=== PATIENT | female | born 1980 | race Hispanic/Latino ===

== ENCOUNTER 2018-02-12 03:15 | Emergency (ER) | payer SELFPAY ==
[2018-02-12] MEDS ORDERED: DIPHENHYDRAMINE 50 MG/ML VIAL ONE (03:59)
[2018-02-12] MEDS ORDERED: DIPHENHYDRAMINE 25 MG TAB/CAP ONE (03:59)
[2018-02-12] MEDS ORDERED: predniSONE 20 MG TAB ONE (04:00)
[2018-02-12] MEDS ORDERED: FAMOTIDINE 20 MG/2 ML VIAL IV ONE (04:00)
[2018-02-12] MEDS ORDERED: NA CHLORIDE 0.9% 1,000 ML ONE (04:00)
[2018-02-12] MEDS ORDERED: INSULIN -REGULAR HUMAN 50 UNIT/0.5 ML ML ONE (04:03)
[2018-02-12 04:09] LABS: MPV 8.2 fL (7.6-11.3)
[2018-02-12 04:12] LABS: Absolute Lymphocytes (CBC) 1.5 K/uL (0.7-4.9); Absolute Monocytes 0.3 K/uL (0.1-1.3); Absolute Neutrophil 3.1 K/uL (1.8-8.0); Basophils % 0.3 % (0-1.3); Eosinophils % 1.4 % (0-4.4); Hematocrit 37.7 % (36.0-45.0); Lymphocytes % 29.5 % (15.3-44.8); MCH 32.7 pg (27.0-35.0); MCV 94.7 fL (80-100); Monocytes % 5.7 % (3.3-12.3); RBC Red Blood Cell Count 3.99 M/uL (3.86-4.86)
[2018-02-12 04:19] LABS: Urine Blood 3+ (NEG); Urine Glucose 2+ (NEG); Urine Protein NEGATIVE (NEG)
[2018-02-12 04:20] LABS: Albumin 3.6 g/dL (3.4-5.0); Bilirubin Total 0.3 mg/dL (0.2-1.0); Potassium 3.9 mmol/L (3.5-5.1); Protein, Total 6.9 g/dL (6.4-8.2)
--- NOTE | 2018-02-12 05:11 | ER ---
Nurse's Notes [facility] Name: Cary Whyte Age: 37 yrs Sex: Female : 1980 Arrival Date: 02/12/2018 Time: 03:21 Bed 13 Private MD: Diagnosis: Type 1 diabetes mellitus;Urticaria;Dermatitis, unspecified;Rash and other nonspecific skin eruption Presentation: 02/12 03:35 Presenting complaint: Patient states: I have a rash that started yesterday and has jb4 spread to my face chest arms, and legs. I went over to my sisters and had dinner with her and took a shower but I used a new soap I had never used before. Transition of care: patient was not received from another setting of care. Onset of symptoms was February 10, 2018. Risk Assessment: Do you want to hurt yourself or someone else? Patient reports no desire to harm self or others. Initial Sepsis Screen: Does the patient meet any 2 criteria? No. Patient's initial sepsis screen is negative. Does the patient have a suspected source of infection? No. Patient's initial sepsis screen is negative. Care prior to arrival: None. 03:35 Method Of Arrival: Ambulatory jb4 03:35 Acuity: SCAR 3 jb4 Triage Assessment: 03:35 General: Appears in no apparent distress. comfortable, Behavior is calm, cooperative, jb4 appropriate for age. Pain: Denies pain. EENT: Throat is clear. Neuro: Level of Consciousness is awake, alert, obeys commands, Oriented to person, place, time, situation. Cardiovascular: Heart tones S1 S2 present Patient's skin is warm and dry. Respiratory: Airway is patent Respiratory effort is even, unlabored, Respiratory pattern is regular, symmetrical, Breath sounds are clear bilaterally. GI: No signs and/or symptoms were reported involving the gastrointestinal system. : No signs and/or symptoms were reported regarding the genitourinary system. Derm: Skin is intact, Skin is pink, warm \T\ dry. Rash noted that is itchy, red, urticaria. Musculoskeletal: Circulation, motion, and sensation intact. Historical: - Allergies: 04:04 No Known Allergies; jb4 - Home Meds: 03:35 metformin 500 mg Oral tab 2 tabs 2 times per day [Active]; lisinopril 2.5 mg Oral tab 1 jb4 tab once daily [Active]; lovastatin 20 mg Oral tab 1 tab once daily [Active]; Levemir subcutaneous subcutaneous [Active]; Novolin N Sub-Q [Active]; - PMHx: 03:35 Diabetes - NIDDM; Hyperlipidemia; Hypertension; jb4 - PSHx: 03:35 ; jb4 - Immunization history:: Adult Immunizations up to date, Flu vaccine is not up to date. - Social history:: Smoking status: unknown. - Family history:: not pertinent. - Ebola Screening: : No symptoms or risks identified at this time. Screenin:13 Abuse screen: Denies threats or abuse. Nutritional screening: No deficits noted. jb4 Tuberculosis screening: No symptoms or risk factors identified. Fall Risk None identified. Assessment: 04:13 General: see triage assessment.. jb4 04:31 Reassessment: Patient appears in no apparent distress at this time. Patient and/or jb4 family updated on plan of care and expected duration. Pain level reassessed. Patient is alert, oriented x 3, equal unlabored respirations, skin warm/dry/pink. Patient states feeling better. 05:00 Reassessment: Patient appears in no apparent distress at this time. Patient and/or jb4 family updated on plan of care and expected duration. Pain level reassessed. Patient is alert, oriented x 3, equal unlabored respirations, skin warm/dry/pink. Reports being able to breath better and a decrease in chest pressure. Patient states feeling better. Vital Signs: 03:35 BP 124 / 85; Pulse 85; Resp 20; Temp 99.0(O); Pulse Ox 100% on R/A; Weight 58.97 kg jb4 (R); Height 5 ft. 3 in. (160.02 cm); 04:33 BP 118 / 82; Pulse 77; Resp 18; Pulse Ox 100% on R/A; jb4 03:35 Body Mass Index 23.03 (58.97 kg, 160.02 cm) 4 ED Course: 03:21 Patient arrived in ED. es 03:27 Riki Chen MD is Attending Physician. [facility] 03:35 Arm band placed on right wrist. jb4 03:35 Patient has correct armband on for positive identification. Bed in low position. Call [facility] light in reach. Side rails up X 1. Pulse ox on. NIBP on. 03:35 Initial lab(s) drawn, by id, sent to lab. Inserted saline lock: 22 gauge in right jb4 antecubital area, using aseptic technique. Blood collected. 03:40 Misael Galarza, JL is Primary Nurse. jb4 04:07 Triage completed. jb4 05:27 No provider procedures requiring assistance completed. IV discontinued, intact, ao bleeding controlled, No redness/swelling at site. Pressure dressing applied. Administered Medications: 03:41 CANCELLED (Duplicate Order): Pepcid 40 mg PO once diego 03:42 Not Given (Duplicate Order): Benadryl 50 mg PO once diego 04:01 Drug: Insulin Regular Human 10 units {Co-Signature: ak1 (Deborah Carbajal RN).} Route: jb4 Sub-Q; Site: left upper arm; 05:28 Follow up: Response: No adverse reaction; Blood sugar is lowered jb4 04:02 Drug: Insulin Regular Human 10 units {Co-Signature: ak1 (Deborah Carbajal RN).} Route: IVP; jb4 Site: right antecubital; 05:28 Follow up: Response: No adverse reaction; Blood sugar is lowered jb4 04:17 Drug: Pepcid 40 mg Route: IVP; Site: right antecubital; jb4 04:40 Follow up: Response: No adverse reaction jb4 04:17 Drug: Benadryl 25 mg Route: IVP; Site: right antecubital; jb4 04:40 Follow up: Response: No adverse reaction jb4 04:18 Drug: NS 0.9% 1000 ml Route: IV; Rate: 1 bolus; Site: right antecubital; jb4 05:28 Follow up: Response: No adverse reaction; IV Status: Completed infusion jb4 04:18 Drug: Benadryl 25 mg Route: PO; jb4 04:40 Follow up: Response: No adverse reaction jb4 04:20 Drug: predniSONE 40 mg Route: PO; jb4 04:50 Follow up: Response: No adverse reaction jb4 Point of Care Testing: Blood Glucose: 03:35 Blood Glucose: 453 mg/dL; jb4 04:31 Blood Glucose: 286 mg/dL; jb4 Ranges: Outcome: 05:11 Discharge ordered by MD. cortez 05:27 Discharged to home ambulatory. ao 05:27 Condition: stable 05:27 Discharge instructions given to patient, Instructed on discharge instructions, follow up and referral plans. Demonstrated understanding of instructions, follow-up care, medications, Prescriptions given X 3. 05:28 Patient left the ED. ao Signatures: Riki Chen MD MD cha Salyer, Edna es Ortiz, Alex RN RN Misael Vasquez RN RN jb4 Deborah Carbajal RN ak1 Corrections: (The following items were deleted from the chart) 04:33 03:35 Cardiovascular: Patient's skin is warm and dry. jb4 jb4 04:33 03:35 Respiratory: Airway is patent Respiratory effort is even, unlabored, Respiratory jb4 pattern is regular, symmetrical, jb4
--- NOTE | 2018-02-12 05:12 | EDPHYS ---
Physician Documentation [facility] Name: Cary Whyte Age: 37 yrs Sex: Female : 1980 Arrival Date: 02/12/2018 Time: 03:21 Bed 13 Private MD: ED Physician Riki Chen HPI: 02/12 03:37 This 37 yrs old Female presents to ER via Unassigned with complaints of Rash. diego 03:37 The patient's rash thought to be caused by soap. The rash is located on the body diego diffusely. The rash can be described as macular, papular, urticarial. Onset: The symptoms/episode began/occurred 2 day(s) ago. Associated signs and symptoms: Pertinent positives:. Severity of symptoms: At their worst the symptoms were mild in the emergency department the symptoms are unchanged. Treatment given at home: Benadryl, OTC lotion/cream. The patient has not experienced similar symptoms in the past. Historical: - Allergies: 04:04 No Known Allergies; jb4 - Home Meds: 03:35 metformin 500 mg Oral tab 2 tabs 2 times per day [Active]; lisinopril 2.5 mg Oral tab 1 jb4 tab once daily [Active]; lovastatin 20 mg Oral tab 1 tab once daily [Active]; Levemir subcutaneous subcutaneous [Active]; Novolin N Sub-Q [Active]; - PMHx: 03:35 Diabetes - NIDDM; Hyperlipidemia; Hypertension; jb4 - PSHx: 03:35 ; jb4 - Immunization history:: Adult Immunizations up to date, Flu vaccine is not up to date. - Social history:: Smoking status: unknown. - Family history:: not pertinent. - Ebola Screening: : No symptoms or risks identified at this time. ROS: 03:42 Constitutional: Negative for fever, chills, and weight loss, Eyes: Negative for injury, diego pain, redness, and discharge, ENT: Negative for injury, pain, and discharge, Neck: Negative for injury, pain, and swelling, Cardiovascular: Negative for chest pain, palpitations, and edema, Respiratory: Negative for shortness of breath, cough, wheezing, and pleuritic chest pain, Abdomen/GI: Negative for abdominal pain, nausea, vomiting, diarrhea, and constipation, Back: Negative for injury and pain, : Negative for injury, bleeding, discharge, and swelling, MS/Extremity: Negative for injury and deformity, Neuro: Negative for headache, weakness, numbness, tingling, and seizure, Psych: Negative for depression, anxiety, suicide ideation, homicidal ideation, and hallucinations, Allergy/Immunology: Negative for hives, rash, and allergies, Endocrine: Negative for neck swelling, polydipsia, polyuria, polyphagia, and marked weight changes. 03:42 Skin: Positive for rash. 03:42 Neuro: 03:42 Respiratory: Negative for shortness of breath. diego 03:42 Neuro: Negative for altered mental status, dizziness. Exam: 03:42 Constitutional: This is a well developed, well nourished patient who is awake, alert, digeo and in no acute distress. Head/Face: Normocephalic, atraumatic. Eyes: Pupils equal round and reactive to light, extra-ocular motions intact. Lids and lashes normal. Conjunctiva and sclera are non-icteric and not injected. Cornea within normal limits. Periorbital areas with no swelling, redness, or edema. ENT: Nares patent. No nasal discharge, no septal abnormalities noted. Tympanic membranes are normal and external auditory canals are clear. Oropharynx with no redness, swelling, or masses, exudates, or evidence of obstruction, uvula midline. Mucous membranes moist. Neck: Trachea midline, no thyromegaly or masses palpated, and no cervical lymphadenopathy. Supple, full range of motion without nuchal rigidity, or vertebral point tenderness. No Meningismus. Chest/axilla: Normal chest wall appearance and motion. Nontender with no deformity. No lesions are appreciated. Cardiovascular: Regular rate and rhythm with a normal S1 and S2. No gallops, murmurs, or rubs. Normal PMI, no JVD. No pulse deficits. Respiratory: Lungs have equal breath sounds bilaterally, clear to auscultation and percussion. No rales, rhonchi or wheezes noted. No increased work of breathing, no retractions or nasal flaring. Abdomen/GI: Soft, non-tender, with normal bowel sounds. No distension or tympany. No guarding or rebound. No evidence of tenderness throughout. Back: No spinal tenderness. No costovertebral tenderness. Full range of motion. MS/ Extremity: Pulses equal, no cyanosis. Neurovascular intact. Full, normal range of motion. Neuro: Awake and alert, GCS 15, oriented to person, place, time, and situation. Cranial nerves II-XII grossly intact. Motor strength 5/5 in all extremities. Sensory grossly intact. Cerebellar exam normal. Normal gait. Psych: Awake, alert, with orientation to person, place and time. Behavior, mood, and affect are within normal limits. 03:42 Skin: cellulitis, is not appreciated, induration, is not appreciated, injury, is not appreciated, urticaria, Turgor: is good. Vital Signs: 03:35 BP 124 / 85; Pulse 85; Resp 20; Temp 99.0(O); Pulse Ox 100% on R/A; Weight 58.97 kg jb4 (R); Height 5 ft. 3 in. (160.02 cm); 04:33 BP 118 / 82; Pulse 77; Resp 18; Pulse Ox 100% on R/A; jb4 03:35 Body Mass Index 23.03 (58.97 kg, 160.02 cm) jb4 MDM: 03:27 Patient medically screened. [facility] 03:44 Data reviewed: vital signs, nurses notes, lab test result(s), CBC, electrolytes, diego urinalysis. 02/12 03:41 Order name: CBC with Diff; Complete Time: 04:21 [facility] 02/12 03:41 Order name: Comprehensive Metabolic Panel; Complete Time: 04:21 [facility] 02/12 04:11 Order name: Urine Dipstick--Ancillary (enter results); Complete Time: 04:21 nc 02/12 03:37 Order name: Blood Glucose Level; Complete Time: 03:40 [facility] 02/12 03:41 Order name: Urine Dipstick-Ancillary (obtain specimen); Complete Time: 04:16 [facility] 02/12 03:41 Order name: Urine Test (obtain specimen); Complete Time: 04:16 [facility] 02/12 04:21 Order name: Blood Glucose Level; Complete Time: 04:33 [facility] Administered Medications: 03:41 CANCELLED (Duplicate Order): Pepcid 40 mg PO once [facility] 03:42 Not Given (Duplicate Order): Benadryl 50 mg PO once [facility] 04:01 Drug: Insulin Regular Human 10 units {Co-Signature: ak1 (Deborah Carbajal RN).} Route: jb4 Sub-Q; Site: left upper arm; 05:28 Follow up: Response: No adverse reaction; Blood sugar is lowered jb4 04:02 Drug: Insulin Regular Human 10 units {Co-Signature: ak1 (Deborah Carbajal RN).} Route: IVP; jb4 Site: right antecubital; 05:28 Follow up: Response: No adverse reaction; Blood sugar is lowered jb4 04:17 Drug: Pepcid 40 mg Route: IVP; Site: right antecubital; jb4 04:40 Follow up: Response: No adverse reaction jb4 04:17 Drug: Benadryl 25 mg Route: IVP; Site: right antecubital; jb4 04:40 Follow up: Response: No adverse reaction jb4 04:18 Drug: NS 0.9% 1000 ml Route: IV; Rate: 1 bolus; Site: right antecubital; jb4 05:28 Follow up: Response: No adverse reaction; IV Status: Completed infusion jb4 04:18 Drug: Benadryl 25 mg Route: PO; jb4 04:40 Follow up: Response: No adverse reaction jb4 04:20 Drug: predniSONE 40 mg Route: PO; jb4 04:50 Follow up: Response: No adverse reaction jb4 Point of Care Testing: Blood Glucose: 03:35 Blood Glucose: 453 mg/dL; jb4 04:31 Blood Glucose: 286 mg/dL; jb4 Ranges: Critical Glucose Levels:Adult <50 mg/dl or >400 mg/dl <40 mg/dl or >180 mg/dl Disposition: 02/12/18 05:11 Discharged to Home. Impression: Type 1 diabetes mellitus, Urticaria, Dermatitis, unspecified, Rash and other nonspecific skin eruption. - Condition is Stable. - Discharge Instructions: Hives, Hives, [id number], Type 1 Diabetes Mellitus, Self Care, Adult, Type 1 Diabetes Mellitus, Diagnosis, Adult, Wbef-nw-Leyu, Type 1 Diabetes Mellitus, Self Care, Adult, [id number]. - Prescriptions for Benadryl 25 mg Oral Capsule - take 1 capsule by ORAL route every 6 hours As needed; 30 tablet. Pepcid 20 mg Oral Tablet - take 1 tablet by ORAL route every 12 hours for 10 days; 20 tablet. Prednisone 20 mg Oral Tablet - take 2 tablet by ORAL route once daily for 5 days; 10 tablet. - Medication Reconciliation Form, Thank You Letter, Antibiotic Education, Prescription Opioid Use form. - Follow up: Private Physician; When: 2 - 3 days; Reason: Recheck today's complaints, Continuance of care, Re-evaluation by your physician. - Problem is new. - Symptoms have improved. Signatures: Dispatcher [employer] EDID Riki Chen MD MD cha Ortiz, Alex RN RN Misael Vasquez RN RN jb4 Deborah Carbajal RN ak1 Corrections: (The following items were deleted from the chart) 03:41 03:37 Pepcid 40 mg PO once ordered. diego cortez 05:28 05:11 02/12/2018 05:11 Discharged to Home. Impression: Type 1 diabetes mellitus; ao Urticaria; Dermatitis, unspecified; Rash and other nonspecific skin eruption. Condition is Stable. Discharge Instructions: Hives, Hives, Mvuz-od-Eahh, Type 1 Diabetes Mellitus, Self Care, Adult, Type 1 Diabetes Mellitus, Diagnosis, Adult, Sypv-id-Hmex, Type 1 Diabetes Mellitus, Self Care, Adult, Ggpl-bm-Hpkh. Prescriptions for Benadryl 25 mg Oral Capsule - take 1 capsule by ORAL route every 6 hours As needed; 30 tablet, Pepcid 20 mg Oral Tablet - take 1 tablet by ORAL route every 12 hours for 10 days; 20 tablet, Prednisone 20 mg Oral Tablet - take 2 tablet by ORAL route once daily for 5 days; 10 tablet. and Forms are Medication Reconciliation Form, Thank You Letter, Antibiotic Education, Prescription Opioid Use. Follow up: Private Physician; When: 2 - 3 days; Reason: Recheck today's complaints, Continuance of care, Re-evaluation by your physician. Problem is new. Symptoms have improved. diego
[2018-02-12 05:36] VITALS: TEMP 99; O2SAT 100
[2018-02-12 05:37] VITALS: BP 118/82
== END 2018-02-12 05:28 | disposition home or self-care (01) ==
LOC: ER 03:15
DX: L50.9 Urticaria, unspecified (principal); L30.9 Dermatitis, unspecified; E10.65 Type 1 diabetes mellitus with hyperglycemia; I10 Essential (primary) hypertension; E78.5 Hyperlipidemia, unspecified; Z79.4 Long term (current) use of insulin; Z79.899 Other long term (current) drug therapy
CPT/HCPCS: 36415; 80053; 81003; 82962; 85025; 96361; 96372; 96374; 96375; 99284; J7030; J7512

== ENCOUNTER 2019-04-01 23:57 | Emergency (ER) | payer SELFPAY ==
[2019-04-02] MEDS ORDERED: MAGNE/ALUM HYDROXD 30 ML UCUP ONE (01:14)
[2019-04-02] MEDS ORDERED: LIDOCAINE VISCOUS 2% SOLN 15 ML UDC ONE (01:15)
[2019-04-02] MEDS ORDERED: NA CHLORIDE 0.9% 1,000 ML ONE (01:15)
[2019-04-02] MEDS ORDERED: ONDANSETRON 4 MG (ODT) TAB ONE (01:15)
[2019-04-02] MEDS ORDERED: FAMOTIDINE 20 MG/2 ML VIAL IV ONE (01:15)
[2019-04-02 01:25] LABS: Protime INR 0.93
[2019-04-02 01:27] LABS: Absolute Lymphocytes (CBC) 0.8 K/uL (0.7-4.9); Basophils % 0.2 % (0-1.3); Hematocrit 40.1 % (36.0-45.0); Lymphocytes % 9.8 % (15.3-44.8); MPV 9.1 fL (7.6-11.3); RBC Red Blood Cell Count 4.24 M/uL (3.86-4.86)
[2019-04-02 01:54] LABS: ALT/SGPT 19 U/L (12-78); AST/SGOT 15 U/L (15-37); Alkaline Phosphatase 105 U/L (45-117); BUN Blood Urea Nitrogen 13 mg/dL (7-18); Bicarbonate 24 mmol/L (21-32); Bilirubin Direct 0.1 mg/dL (0-0.2); Bilirubin Total 0.6 mg/dL (0.2-1.0); Glucose Level 304 mg/dL (74-106); Lipase 48 U/L (73-393); Magnesium 1.9 mg/dL (1.8-2.4); NT PRO-BNP 55 pg/mL (<125); Protein, Total 7.5 g/dL (6.4-8.2); Sodium Level 136 mmol/L (136-145); Troponin (Emerg Dept Use Only) < 0.02 ng/mL (0.0-0.045)
[2019-04-02 02:22] LABS: Urine Blood 2+ (NEG); Urine Glucose 2+ (NEG); Urine Protein NEGATIVE (NEG); Urine pH 6.5 (5.0-7.0)
[2019-04-02 03:06] LABS: Blood Morphology Comment NOT SEEN (NOT SEEN); Platelet Estimate ADEQ
--- NOTE | 2019-04-02 04:53 | ER ---
Nurse's Notes [facility] Name: Cary Whyte Age: 38 yrs Sex: Female : 1980 Arrival Date: 04/01/2019 Time: 23:58 Bed 17 Private MD: Diagnosis: Hyperglycemia, unspecified;Generalized abdominal pain Presentation: 04/02 00:20 Presenting complaint: Patient states: upper abd pain started today, also vomiting, iw started having left sided chest pain at 9 pm. Transition of care: patient was not received from another setting of care. Onset of symptoms was April 02, 2019. Risk Assessment: Do you want to hurt yourself or someone else? Patient reports no desire to harm self or others. Initial Sepsis Screen: Does the patient meet any 2 criteria? No. Patient's initial sepsis screen is negative. Does the patient have a suspected source of infection? No. Patient's initial sepsis screen is negative. Care prior to arrival: None. 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 - Social history:: Smoking status: Patient uses tobacco products, 3 cigs . - Ebola Screening: : Patient negative for fever greater than or equal to 101.5 degrees Fahrenheit, and additional compatible Ebola Virus Disease symptoms Patient denies exposure to infectious person Patient denies travel to an Ebola-affected area in the 21 days before illness onset No symptoms or risks identified at this time. Screenin:30 Abuse screen: Denies threats or abuse. Denies injuries from another. Nutritional iw screening: No deficits noted. Tuberculosis screening: No symptoms or risk factors identified. Fall Risk IV access (20 points). Assessment: 01:30 General: Appears in no apparent distress. Behavior is calm, cooperative. Pain: iw Complains of pain in anterior aspect of left upper chest, left breast and abdomen. Neuro: Level of Consciousness is awake, alert, obeys commands, Oriented to person, place, time, situation, Moves all extremities. Full function. Cardiovascular: Reports chest pain. Respiratory: Respiratory effort is even, unlabored, Respiratory pattern is regular, symmetrical. GI: Bowel sounds present X 4 quads. Abd is soft and non tender X 4 quads. Reports upper abdominal pain, epigastric pain. Derm: Skin is intact, is healthy with good turgor. Musculoskeletal: Range of motion: intact in all extremities. 02:30 Reassessment: Patient appears in no apparent distress at this time. Patient and/or iw family updated on plan of care and expected duration. Pain level reassessed. Patient is alert, oriented x 3, equal unlabored respirations, skin warm/dry/pink. 04:32 Reassessment: Patient appears in no apparent distress at this time. Patient and/or iw family updated on plan of care and expected duration. Pain level reassessed. Patient is alert, oriented x 3, equal unlabored respirations, skin warm/dry/pink. 04:35 Reassessment: report received from Felicitas PARIKH. Vital Signs: 00:25 BP 143 / 94; Pulse 75; Resp 16 S; Temp 98.2; Pulse Ox 98% on R/A; Weight 58.06 kg; iw Height 5 ft. 3 in. (160.02 cm); Pain 10/10; 00:41 BP 116 / 83; Pulse 74; Resp 16; Pulse Ox 98% on R/A; Pain 10/10; iw 04:32 BP 124 / 74; Pulse 81; Resp 16; Temp 98.2; Pulse Ox 99% on R/A; iw 04:53 Pulse 77; Resp 17; Pulse Ox 98% on R/A; sg 04:53 BP 117 / 70; sg 00:25 Body Mass Index 22.67 (58.06 kg, 160.02 cm) iw ED Course: 04/01 23:58 Patient arrived in ED. cf2 04/02 00:20 Baljeet, Felicitas, RN is Primary Nurse. iw 00:22 Triage completed. iw 00:26 Arm band placed on. iw 00:28 Inserted saline lock: 20 gauge in right antecubital area, using aseptic technique. jb5 Blood collected. 00:29 Warm blanket given. Head of bed Elevated. jb5 00:32 Riki Sol PA is PHCP. cp 00:32 Cosme Stoner MD is Attending Physician. cp 02:34 XRAY Chest (1 view) In Process Unspecified. EDMS 02:55 CT Abd/Pelvis - IV Contrast Only In Process Unspecified. EDMS 04:00 Patient has correct armband on for positive identification. Bed in low position. Call sg light in reach. Side rails up X2. engineering production worker on. Pulse ox on. NIBP on. Warm blanket given. 04:00 Report received from Felicitas PARIKH. sg 04:33 No provider procedures requiring assistance completed. iw 04:35 Primary Nurse role handed off by Felicitas Delong RN sg 04:35 Manny Washington RN is Primary Nurse. sg 05:00 IV discontinued, intact, bleeding controlled, No redness/swelling at site. Pressure sg dressing applied. Administered Medications: 01:30 Drug: NS 0.9% 1000 ml Route: IV; Rate: 1 bolus; Site: right antecubital; iw 01:30 Drug: Pepcid 20 mg Route: IVP; Site: right antecubital; iw 01:30 Drug: Zofran 4 mg Route: PO; sg 01:38 Drug: GI Cocktail without - (Maalox Suspension 30 ml, Lidocaine Liquid 2 % 15 iw ml) Route: PO; 04:33 Not Given (Other Intervention Used): Zofran 4 mg IVP once; over 2 minutes sg Outcome: 04:51 Discharge ordered by . ps1 05:00 Discharged to home ambulatory, with family. sg 05:00 Condition: good 05:00 Discharge instructions given to patient, family, using [employer] diamond sorter service Instructed on discharge instructions, follow up and referral plans. safety practices, home medication use Demonstrated understanding of instructions, follow-up care. 05:08 Patient left the ED. dm5 Signatures: Dispatcher [employer] [facility] Leyda Rodriguez RN RN dm Manny Washington RN RN sg Baljeet, Felicitas, Riki Obregon RN, PA PA cp Broussard, Jennifer jb5 Cosme Stoner MD MD ps1 Zaid Beaver 2
--- NOTE | 2019-04-02 04:55 | EDPHYS ---
Physician Documentation [facility] Name: Cary Whyte Age: 38 yrs Sex: Female : 1980 Arrival Date: 04/01/2019 Time: 23:58 Bed 17 Private MD: ED Physician Cosme Stoner HPI: 04/02 01:00 This 38 yrs old Female presents to ER via Ambulatory with complaints of cp Abdominal Pain, Chest Pain. 01:00 The patient presents with abdominal pain in the epigastric area, in the upper abdomen. cp Onset: The symptoms/episode began/occurred today, at 17:00. The symptoms radiate to chest. Associated signs and symptoms: Pertinent positives: nausea and vomiting. 01:00 The symptoms are described as waxing/waning. Severity of pain: in the emergency cp department the pain is unchanged despite home interventions. 01:00 Modifying factors: the symptoms are aggravated by pressure. 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 - Social history:: Smoking status: Patient uses tobacco products, 3 cigs . - Ebola Screening: : Patient negative for fever greater than or equal to 101.5 degrees Fahrenheit, and additional compatible Ebola Virus Disease symptoms Patient denies exposure to infectious person Patient denies travel to an Ebola-affected area in the 21 days before illness onset No symptoms or risks identified at this time. ROS: 01:05 Constitutional: Negative for body aches, chills, fever, poor PO intake. cp 01:05 Eyes: Negative for injury, pain, redness, and discharge. cp 01:05 Cardiovascular: Positive for chest pain. cp 01:05 ENT: Negative for drainage from ear(s), ear pain, sore throat, difficulty swallowing, cp difficulty handling secretions. 01:05 Neck: Negative for stiffness. 01:05 Respiratory: Negative for cough, shortness of breath, wheezing. 01:05 Abdomen/GI: Positive for abdominal pain, nausea, vomiting, Negative for diarrhea, constipation, anorexia, active vomiting. 01:05 Back: Negative for pain at rest, pain with movement, radiated pain. 01:05 : Negative for urinary symptoms. 01:05 Skin: Negative for rash. 01:05 Neuro: Negative for altered mental status, dizziness, headache, syncope, weakness. 01:05 All other systems are negative. Exam: 01:10 Constitutional: The patient appears in no acute distress, alert, awake, cp non-diaphoretic, non-toxic, well developed, well nourished. 01:10 Head/Face: Normocephalic, atraumatic. cp 01:10 Eyes: Periorbital structures: appear normal, Conjunctiva: normal, no exudate, no injection, Sclera: no appreciated abnormality, Lids and lashes: appear normal, bilaterally. 01:10 ENT: External ear(s): are unremarkable, Nose: is normal, Mouth: Lips: moist, Oral mucosa: Posterior pharynx: is normal, airway is patent, no erythema, no exudate. 01:10 Chest/axilla: Inspection: normal, Palpation: is normal, no crepitus, no tenderness. 01:10 Cardiovascular: Rate: normal, Rhythm: regular. 01:10 Respiratory: the patient does not display signs of respiratory distress, Respirations: normal, no use of accessory muscles, no retractions, no splinting, no tachypnea, labored breathing, is not present, Breath sounds: are clear throughout, no decreased breath sounds, no stridor, no wheezing. 01:10 Abdomen/GI: Inspection: abdomen appears normal, Bowel sounds: active, all quadrants, Palpation: soft, in all quadrants, moderate abdominal tenderness, in the epigastric area and right upper quadrant, voluntary guarding, is elicited in the epigastric area and right upper quadrant. 01:10 Back: pain, is absent, ROM is normal. 01:10 Neuro: Orientation: to person, place \T\ time. Mentation: is normal, Motor: moves all fours, strength is normal. Vital Signs: 00:25 BP 143 / 94; Pulse 75; Resp 16 S; Temp 98.2; Pulse Ox 98% on R/A; Weight 58.06 kg; iw Height 5 ft. 3 in. (160.02 cm); Pain 10/10; 00:41 BP 116 / 83; Pulse 74; Resp 16; Pulse Ox 98% on R/A; Pain 10/10; iw 04:32 BP 124 / 74; Pulse 81; Resp 16; Temp 98.2; Pulse Ox 99% on R/A; iw 04:53 Pulse 77; Resp 17; Pulse Ox 98% on R/A; sg 04:53 BP 117 / 70; sg 00:25 Body Mass Index 22.67 (58.06 kg, 160.02 cm) iw MDM: 00:34 Patient medically screened. cp 01:15 Differential diagnosis: cholecystitis, Cholelithiasis, gastritis, non-specific abd cp pain, pancreatitis, Peptic Ulcer Disease, Perf. Duodenal Ulcer, Perf. Gastric Ulcer. 03:24 Data reviewed: vital signs, nurses notes, lab test result(s), I have discussed the cp patient's presentation/case with the attending Emergency Department Physician;. Transition of care: After a detail discussion of the patient's case, care is transferred to Cosme Stoner MD. 04/02 00:36 Order name: Basic Metabolic Panel iw 04/02 00:36 Order name: CBC with Diff iw 04/02 00:36 Order name: LFT's iw 04/02 00:36 Order name: Magnesium iw 04/02 00:36 Order name: NT PRO-BNP iw 04/02 00:36 Order name: PT-INR iw 04/02 00:36 Order name: Troponin (emerg Dept Use Only) iw 04/02 00:55 Order name: Lipase cp 04/02 01:39 Order name: CBC with Automated Diff; Complete Time: 03:17 EDMS 04/02 03:17 Interpretation: Normal except: GIULIA% 85.7; LYM% 9.8. cp 04/02 01:41 Order name: Urine Dipstick--Ancillary (enter results); Complete Time: 03:18 cm6 04/02 03:18 Interpretation: Normal except: UGLUC 2+; UKET 4+; UBLD 2+. cp 04/02 01:41 Order name: Urine --Ancillary (enter results) cm6 04/02 01:42 Order name: Protime (+INR); Complete Time: 02:23 EDMS 04/02 01:55 Order name: Basic Metabolic Panel; Complete Time: 02:23 EDMS 04/02 02:23 Interpretation: Normal except: GLUC 304. cp 04/02 01:56 Order name: Liver (Hepatic) Function; Complete Time: 02:23 EDMS 04/02 02:23 Interpretation: Reviewed. cp 04/02 00:29 Order name: EKG - Nurse/Tech; Complete Time: 00:29 jb5 04/02 00:29 Order name: Cardiac monitoring; Complete Time: 00:29 jb5 04/02 00:36 Order name: XRAY Chest (1 view) iw 04/02 00:36 Order name: EKG; Complete Time: 01:31 iw 04/02 00:36 Order name: IV Saline Lock; Complete Time: 00:41 iw 04/02 01:30 Order name: CT Abd/Pelvis - IV Contrast Only cp 04/02 01:56 Order name: Troponin (Emerg Dept Use Only); Complete Time: 02:23 EDMS 04/02 02:23 Interpretation: Within normal limits: TROPED < 0.02. cp 04/02 01:56 Order name: NT PRO-BNP; Complete Time: 02:23 EDMS 04/02 01:56 Order name: Magnesium; Complete Time: 02:23 EDMS 04/02 01:56 Order name: Lipase; Complete Time: 02:23 EDMS 04/02 02:23 Interpretation: LIP 48; Reviewed. cp 04/02 02:19 Order name: Manual Differential; Complete Time: 03:17 EDMS 04/02 03:18 Interpretation: Normal except: SEGS 82; BANDS [F] 2; LYM 12. cp 04/02 00:36 Order name: Labs collected and sent; Complete Time: 01:21 iw 04/02 00:36 Order name: O2 Per Protocol; Complete Time: 00:41 iw 04/02 00:36 Order name: O2 Sat Monitoring; Complete Time: 00:41 iw 04/02 00:55 Order name: Urine Dipstick-Ancillary (obtain specimen); Complete Time: 01:16 cp 04/02 00:55 Order name: Urine Test (obtain specimen); Complete Time: 01:16 cp Administered Medications: 01:30 Drug: NS 0.9% 1000 ml Route: IV; Rate: 1 bolus; Site: right antecubital; iw 01:30 Drug: Pepcid 20 mg Route: IVP; Site: right antecubital; iw 01:30 Drug: Zofran 4 mg Route: PO; sg 01:38 Drug: GI Cocktail without - (Maalox Suspension 30 ml, Lidocaine Liquid 2 % 15 iw ml) Route: PO; 04:33 Not Given (Other Intervention Used): Zofran 4 mg IVP once; over 2 minutes sg Disposition: 07:05 Co-signature as Attending Physician, Cosme Stoner MD Available for consultation at ps1 all times. Signing chart for administrative purposes. Not an endorsement of care. . Disposition: 04/02/19 04:51 Discharged to Home. Impression: Hyperglycemia, unspecified, Generalized abdominal pain. - Condition is Stable. - Discharge Instructions: Abdominal Pain, Adult, Hyperglycemia. - Medication Reconciliation Form, Thank You Letter, Antibiotic Education, Prescription Opioid Use form. - Follow up: Private Physician; When: As needed; Reason: If symptoms return, Further diagnostic work-up, Recheck today's complaints, Continuance of care. Follow up: Emergency Department; When: As needed; Reason: Fever > 102 F, Trouble breathing, Worsening of condition. - Problem is new. - Symptoms have improved. Signatures: Dispatcher [employer] EDLeyda Huber RN RN dm5 Manny Washington RN RN sg Williams, Irene, RN RN Riki Sol PA PA cp Broussard, Jennifer 5 Cosme Stoner MD MD ps1 Corrections: (The following items were deleted from the chart) 05:08 04:51 04/02/2019 04:51 Discharged to Home. Impression: Hyperglycemia, unspecified; dm5 Generalized abdominal pain. Condition is Stable. Forms are Medication Reconciliation Form, Thank You Letter, Antibiotic Education, Prescription Opioid Use. Follow up: Private Physician; When: As needed; Reason: If symptoms return, Further diagnostic work-up, Recheck today's complaints, Continuance of care. Follow up: Emergency Department; When: As needed; Reason: Fever > 102 F, Trouble breathing, Worsening of condition. Problem is new. Symptoms have improved. ps1
[2019-04-02 05:16] VITALS: TEMP 98.2
[2019-04-02 05:21] VITALS: BP 117/70; O2SAT 98
--- NOTE | 2019-04-02 11:56 | RAD REPORT ---
EXAM DESCRIPTION: RAD - Chest Single View - 04/02/2019 2:12 am CLINICAL HISTORY: CHEST PAIN Chest pain. COMPARISON: No comparisons FINDINGS: Portable technique limits examination quality. The lungs are grossly clear. The heart is normal in size. No displaced fractures. IMPRESSION: No acute intrathoracic process suspected.
--- NOTE | 2019-04-02 12:47 | EKG ---
Test Date: 2019-04-02 Test Time: 00:18:22 [employer] Residential Service Technician: NITISH MEASUREMENT RESULTS: Intervals: Rate: 77 [place]: 142 QRSD: 76 QT: 414 QTc: 468 [place]: P: 51 OH: 142 QRS: 9 T: 48 INTERPRETIVE STATEMENTS: Normal sinus rhythm Cannot rule out Anterior infarct, age undetermined Abnormal ECG No previous ECG available for comparison Electronically Signed On 04-02-19 12:46:12 SMASH PIECER by Steve Hamilton
--- NOTE | 2019-04-03 12:16 | RAD REPORT ---
EXAM DESCRIPTION: CT Abdomen and Pelvis With Intravenous Contrast CLINICAL HISTORY: The patient is 38 years old and is Female; epigastric abdomen pain TECHNIQUE: Axial computed tomography images of the abdomen and pelvis with intravenous contrast. S agittal and coronal reformatted images were created and reviewed. This CT exam was performed using one or more of the following dose reduction techniques: automated exposure control, adjustment of t he mA and/or kV according to patient size, and/or use of iterative reconstruction technique. COMPARISON: No relevant prior studies available. FINDINGS: LUNG BASES: Minimal dependent densities in the lung bases are present. ABDOMEN: LIVER: Unremarkable. No mass. GALLBLADDER AND BILE DUCTS: The gallbladder is contracted. PANCREAS: No ductal dilation. No mass. SPLEEN: Unremarkable. ADRENALS: Unremarkable. No mass. KIDNEYS AND URETERS: Unremarkable. The kidneys enhance symmetrically. No obstructing renal or ur eteral calculus is seen. No hydronephrosis or hydroureter. No perinephric fluid or stranding. STOMACH AND BOWEL: The stomach is distended with food contents. The proximal small bowel is deco mpressed. Multiple fluid-filled prominent mid to distal small bowel loops are present with suggestion of minimal mucosal enhancement and adjacent edema within the mesentery. A moderate amount stool is p resent throughout the colon. There is no bowel obstruction. PELVIS: APPENDIX: The appendix is normal in caliber without surrounding inflammation. BLADDER: Unremarkable. No mass. REPRODUCTIVE: A 2 cm left ovarian cyst is present. No follow-up imaging is recommended. The uter us and right ovary are normal. ABDOMEN and PELVIS: INTRAPERITONEAL SPACE: Unremarkable. No free air. No significant fluid collection. BONES/JOINTS: No acute fracture. SOFT TISSUES: The soft tissues are normal. VASCULATURE: Unremarkable. No abdominal aortic aneurysm. LYMPH NODES: Unremarkable. No enlarged lymph nodes. IMPRESSION: Findings suggestive of a nonspecific enteritis involving the mid to distal small bowel w ithout evidence of obstruction. Electronically signed by: Phoebe Cherry MD 04/02/2019 4:09 AM HEAD OF SALES [employer] Due to temporary technical issues with the PACS/Fluency reporting system, reports are being signed by the in house radiologist as a courtesy to ensure prompt reporting. The interpreting radiologist is f ully responsible for the content of the report.
== END 2019-04-02 05:08 | disposition home or self-care (01) ==
LOC: ER 23:57
DX: E11.65 Type 2 diabetes mellitus with hyperglycemia (principal); R10.84 Generalized abdominal pain; I10 Essential (primary) hypertension; E78.5 Hyperlipidemia, unspecified; Z79.4 Long term (current) use of insulin; Z72.0 Tobacco use
CPT/HCPCS: 36415; 71045; 74177; 80048; 80076; 81003; 81025; 83690; 83735; 83880; 84484; 85025; 85610; 93005; 96374; 99284; J7030; Q9967